=== PATIENT | female | born 1950 | race Two or more races ===

== ENCOUNTER 2023-08-02 18:02 | Inpatient (IN) | payer OTHER ==
[~2023-08-02] VITALS: Ht 152.4 cm; Wt 55.3 kg
[2023-08-02 18:40] LABS: Chloride 101 mmol/L (98-107); Sodium 135 mmol/L (136-145)
[2023-08-02 18:41] LABS: Anion Gap 6 (5-15); Carbon Dioxide 28 mmol/L (20-30)
[2023-08-02 18:42] LABS: Calcium 9.2 mg/dL (8.5-10.1)
[2023-08-02 18:44] LABS: Basophils # (auto) 0 10 ^3/uL (0-0.2); Basophils % (auto) 0.3 % (0.0-2.0); Eosinophils # (auto) 0.1 10 ^3/uL (0-0.8); Eosinophils % (auto) 0.9 % (0.0-7.0); Hematocrit 39.2 % (36.0-46.0); Hemoglobin 13.2 g/dL (12.2-16.2); Lymphocytes # (auto) 1.1 10 ^3/uL (0.4-5.4); Lymphocytes % (auto) 8.7 % (10.0-50.0); Mean Corpuscular Hemoglobin 30.8 pg (28.0-32.0); Mean Corpuscular Hgb Conc. 33.7 g/dL (32.0-36.0); Mean Corpuscular Volume 91.4 fL (80.0-100.0); Monocytes # (auto) 1.1 10 ^3/uL (0-1.3); Neutrophils # (auto) 10.3 10 ^3/uL (1.6-8.6); Neutrophils % (auto) 81.1 % (37.0-80.0); Red Blood Cells 4.29 10^6/uL (4.0-5.20); Red Cell Distribution Width 12.1 % (11.8-14.3); White Blood Cell 12.7 10^3/uL (4.4-10.8)
[2023-08-02 18:46] LABS: Blood Urea Nitrogen 20 mg/dL (9-23); Glucose 91 mg/dL (74-106)
[2023-08-02] MEDS ORDERED: KETOROLAC TROMETH 30 MG/ML 1ML VIAL IV ONE (19:30)
[2023-08-02] MEDS ORDERED: SODIUM CHLORIDE 0.9% 1,000 ML IVB ONE (19:30)
[2023-08-02] MEDS ORDERED: ONDANSETRON HCL 4 MG/2 ML VIAL IV ONE (19:30)
[2023-08-02] MEDS ORDERED: SODIUM CHLORIDE 0.9% 1,000 ML IV ONE (19:30)
[2023-08-02] MEDS ORDERED: PIPERACILLIN-TAZOB 3.375GM 100 ML IV ONE (19:45)
[2023-08-02 20:09] LABS: Urine Epithelial Cast None Seen /hpf (<5)
[2023-08-02 20:32] LABS: Urine Bacteria FEW /hpf (None Seen); Urine Blood 3+ /uL (Negative); Urine Clarity HAZY (Clear); Urine Color Yellow (Yellow); Urine Protein, UAD 1+ (Negative); Urine Specific Gravity 1.015 (1.001-1.035); Urine Urobilinogen Normal (Negative); Urine WBC 548 /hpf (0 - 5); Urine WBC Clumps PRESENT /hpf (None Seen)
[2023-08-02] MEDS ORDERED: ACETAMINOPHEN 325 MG TAB PO PRN (21:30)
[2023-08-02] MEDS ORDERED: DEXTROSE (50%) 50ML SYRG IV PRN (21:30)
[2023-08-02] MEDS ORDERED: ONDANSETRON HCL 4 MG/2 ML VIAL IV PRN (21:30)
[2023-08-02] MEDS: SODIUM CHLORIDE 0.9% 1,000 ML IV SCH (21:53)
[2023-08-02] MEDS: InsuLIN REG 1unit/0.01ml Soln (100units/ml) SC SCH (22:00)
[2023-08-02] MEDS: PIPERACILLIN-TAZOB 3.375GM 100 ML IV SCH (22:00)
[2023-08-02] MEDS ORDERED: NITROGLYCERIN 0.4 MG SL TAB SL PRN (22:15)
[2023-08-02] MEDS ORDERED: MORPHINE SULFATE INJ 2 MG/ml SYRG IV PRN (22:15)
[2023-08-02] MEDS: ACCU-CHEK COMFORT CURVE STRIP VI SCH (23:24)
[2023-08-03] MEDS: HYDROcodone-ACET 5/325MG TAB PO PRN ×2 (00:30→04:42)
[2023-08-03] MEDS: SODIUM CHLORIDE 0.9% 1,000 ML IV SCH ×3 (05:54→15:17)
[2023-08-03 06:34] LABS: Basophils # (auto) 0 10 ^3/uL (0-0.2); Basophils % (auto) 0.2 % (0.0-2.0); Eosinophils # (auto) 0.1 10 ^3/uL (0-0.8); Eosinophils % (auto) 0.9 % (0.0-7.0); Hematocrit 37.4 % (36.0-46.0); Hemoglobin 12.4 g/dL (12.2-16.2); Lymphocytes # (auto) 0.6 10 ^3/uL (0.4-5.4); Lymphocytes % (auto) 7.1 % (10.0-50.0); Mean Corpuscular Hemoglobin 30.8 pg (28.0-32.0); Mean Corpuscular Hgb Conc. 33.1 g/dL (32.0-36.0); Mean Corpuscular Volume 92.8 fL (80.0-100.0); Monocytes # (auto) 0.9 10 ^3/uL (0-1.3); Neutrophils # (auto) 7.5 10 ^3/uL (1.6-8.6); Neutrophils % (auto) 81.8 % (37.0-80.0); Red Blood Cells 4.03 10^6/uL (4.0-5.20); Red Cell Distribution Width 12.3 % (11.8-14.3); White Blood Cell 9.1 10^3/uL (4.4-10.8)
[2023-08-03] MEDS: PIPERACILLIN-TAZOB 3.375GM 100 ML IV SCH (06:54)
[2023-08-03 06:55] LABS: Alkaline Phosphatase 115 U/L (46-116); Anion Gap 9 (5-15); Aspartate Aminotransferase 9 U/L (13-40); BUN/Creatinine Ratio 22.7 (10.0-20.0); Blood Urea Nitrogen 15 mg/dL (9-23); Calcium 8.4 mg/dL (8.7-10.4); Carbon Dioxide 23 mmol/L (20-30); Chloride 105 mmol/L (98-107); Glucose 73 mg/dL (74-106); Potassium 3.7 mmol/L (3.5-5.1); Sodium 137 mmol/L (136-145)
[2023-08-03 06:56] LABS: Bilirubin, Total 0.4 mg/dL (0.2-1.0); Total Protein 7.1 g/dL (5.7-8.2)
[2023-08-03 06:58] LABS: Alanine Aminotransferase < 9 U/L (7-40)
[2023-08-03] MEDS: ACCU-CHEK COMFORT CURVE STRIP VI SCH ×4 (07:30→21:51)
[2023-08-03] MEDS: InsuLIN REG 1unit/0.01ml Soln (100units/ml) SC SCH ×4 (07:30→21:54)
[2023-08-03 10:12] VITALS: BP 137/69; PULSE 101; RESP 20; TEMP 98.1; O2SAT 94
[2023-08-03] MEDS ORDERED: cefTRIAXone 1GM/50ML D5W 50 ML IV ONE (10:15)
[2023-08-03 10:21] VITALS: BP 134/57; PULSE 69; RESP 20; TEMP 98.6; O2SAT 93
[2023-08-03] MEDS: MORPHINE SULFATE INJ 2 MG/ml SYRG IV PRN ×3 (11:11→21:55)
[2023-08-03] MEDS ORDERED: GLIP10TA9 PO (12:29)
[2023-08-03] MEDS ORDERED: ESCI10TA PO (12:45)
[2023-08-03] MEDS ORDERED: OMEG1400 PO (12:45)
[2023-08-03] MEDS ORDERED: MELO-335 PO (12:45)
[2023-08-03] MEDS ORDERED: METF-372 PO (12:45)
[2023-08-03] MEDS ORDERED: MAGN400T40 OR (12:45)
[2023-08-03] MEDS ORDERED: CYCL-837 PO (12:45)
[2023-08-03] MEDS ORDERED: SACC1CAP3 PO (12:45)
[2023-08-03] MEDS ORDERED: B-COCAP36 OR (12:45)
[2023-08-03 13:00] VITALS: BP 150/71; PULSE 99; RESP 20; TEMP 98; O2SAT 92
[2023-08-03 17:00] VITALS: BP 129/72; PULSE 96; RESP 18; TEMP 98.7; O2SAT 94
[2023-08-03 20:00] VITALS: PULSE 99; RESP 18; TEMP 37.1; O2SAT 95
[2023-08-03] MEDS: TAMSULOSIN HYDROCHLORIDE 0.4 MG CAP PO SCH (21:49)
[2023-08-03] MEDS: DOCUSATE SOD 100 MG CAP PO PRN (21:54)
[2023-08-03 22:00] VITALS: BP_SYST 109; BP_SYST 131; BP_DIAS 59; BP_DIAS 86; PULSE 107; PULSE 93; RESP 20; TEMP 98.1; TEMP 99.1; O2SAT 93; O2SAT 95
[2023-08-04] VITALS (8 sets, daily range): BP systolic 113–163; BP diastolic 54–87; PULSE 66–111; RESP 17–22; TEMP 37.1; O2SAT 0–95
[2023-08-04 06:43] LABS: Albumin 3.7 g/dL (3.2-4.8); Alkaline Phosphatase 109 U/L (46-116); Anion Gap 8 (5-15); Aspartate Aminotransferase 14 U/L (13-40); BUN/Creatinine Ratio 14.5 (10.0-20.0); Bilirubin, Total 0.3 mg/dL (0.2-1.0); Blood Urea Nitrogen 8 mg/dL (9-23); Calcium 8.5 mg/dL (8.5-10.1); Carbon Dioxide 22 mmol/L (20-30); Chloride 105 mmol/L (98-107); Glucose 133 mg/dL (74-106); Potassium 3.6 mmol/L (3.5-5.1); Sodium 135 mmol/L (136-145); Total Protein 6.4 g/dL (5.7-8.2)
[2023-08-04 06:44] LABS: Alanine Aminotransferase < 9 U/L (7-40)
[2023-08-04] MEDS: ACCU-CHEK COMFORT CURVE STRIP VI SCH ×4 (06:44→21:32)
[2023-08-04] MEDS: InsuLIN REG 1unit/0.01ml Soln (100units/ml) SC SCH ×4 (06:44→21:31)
[2023-08-04 06:48] LABS: Basophils # (auto) 0 10 ^3/uL (0-0.2); Basophils % (auto) 0.2 % (0.0-2.0); Eosinophils # (auto) 0.1 10 ^3/uL (0-0.8); Hematocrit 34.7 % (36.0-46.0); Hemoglobin 11.7 g/dL (12.2-16.2); Lymphocytes # (auto) 0.7 10 ^3/uL (0.4-5.4); Lymphocytes % (auto) 7.3 % (10.0-50.0); Mean Corpuscular Hemoglobin 31.2 pg (28.0-32.0); Mean Corpuscular Hgb Conc. 33.8 g/dL (32.0-36.0); Mean Corpuscular Volume 92.3 fL (80.0-100.0); Monocytes # (auto) 0.6 10 ^3/uL (0-1.3); Monocytes % (auto) 6.8 % (0.0-12.0); Neutrophils # (auto) 7.8 10 ^3/uL (1.6-8.6); Neutrophils % (auto) 84.7 % (37.0-80.0); Red Blood Cells 3.76 10^6/uL (4.0-5.20); Red Cell Distribution Width 12.3 % (11.8-14.3); White Blood Cell 9.3 10^3/uL (4.4-10.8)
[2023-08-04] MEDS: cefTRIAXone 1GM/50ML D5W 50 ML IV SCH (09:11)
[2023-08-04] MEDS: SODIUM CHLORIDE 0.9% 1,000 ML IV SCH ×2 (09:12→17:28)
[2023-08-04] MEDS: DOCUSATE SOD 100 MG CAP PO PRN (16:17)
[2023-08-04] MEDS: TAMSULOSIN HYDROCHLORIDE 0.4 MG CAP PO SCH (17:25)
[2023-08-04] MEDS: MORPHINE SULFATE INJ 2 MG/ml SYRG IV PRN ×2 (17:26→23:35)
[2023-08-04] MEDS ORDERED: LACTULOSE 20Gm/30ML SOLN PO ONE (19:00)
[2023-08-05] MEDS: HYDROcodone-ACET 5/325MG TAB PO PRN ×2 (01:53→06:34)
[2023-08-05] MEDS: MORPHINE SULFATE INJ 2 MG/ml SYRG IV PRN ×3 (04:11→21:26)
[2023-08-05 05:00] VITALS: BP 130/92; PULSE 93; RESP 18; TEMP 97.8; O2SAT 97
[2023-08-05] MEDS: InsuLIN REG 1unit/0.01ml Soln (100units/ml) SC SCH ×4 (06:28→21:13)
[2023-08-05] MEDS: ACCU-CHEK COMFORT CURVE STRIP VI SCH ×4 (06:49→22:00)
[2023-08-05] MEDS: cefTRIAXone 1GM/50ML D5W 50 ML IV SCH (08:16)
[2023-08-05 09:00] VITALS: BP 119/70; PULSE 71; RESP 18; TEMP 97.8; O2SAT 96
[2023-08-05] MEDS ORDERED: LACTULOSE 20Gm/30ML SOLN PO PRN (09:00)
[2023-08-05 09:34] VITALS: BP 153/68; PULSE 79; RESP 20; TEMP 97.7; O2SAT 93
[2023-08-05] MEDS ORDERED: KETOROLAC TROMETH 30 MG/ML 1ML VIAL IV ONE (12:45)
[2023-08-05 13:25] VITALS: BP 146/76; PULSE 78; RESP 20; TEMP 97.6; O2SAT 95
[2023-08-05 14:31] LABS: INR 1.04 (0.9-1.15); Partial Thromboplastin Time 30.2 SEC (24.5-34.5); Prothrombin Time 10.9 sec (9.3-11.8)
[2023-08-05] MEDS: SODIUM CHLORIDE 0.9% 1,000 ML IV SCH (15:55)
[2023-08-05 16:46] VITALS: BP 158/68; PULSE 78; RESP 20; TEMP 98; O2SAT 95
[2023-08-05] MEDS: TAMSULOSIN HYDROCHLORIDE 0.4 MG CAP PO SCH (17:50)
[2023-08-05 21:59] VITALS: BP 107/77; PULSE 96; RESP 20; TEMP 97.8; O2SAT 99
[2023-08-06] VITALS (8 sets, daily range): BP systolic 141–153; BP diastolic 61–95; PULSE 83–95; RESP 12–20; TEMP 97.5–98.2; O2SAT 92–100
[2023-08-06] MEDS: MORPHINE SULFATE INJ 2 MG/ml SYRG IV PRN ×3 (01:37→21:01)
[2023-08-06] MEDS: SODIUM CHLORIDE 0.9% 1,000 ML IV SCH ×2 (05:15→18:35)
[2023-08-06] MEDS: InsuLIN REG 1unit/0.01ml Soln (100units/ml) SC SCH ×4 (06:06→22:00)
[2023-08-06] MEDS: ACCU-CHEK COMFORT CURVE STRIP VI SCH ×4 (06:34→22:00)
[2023-08-06] MEDS: cefTRIAXone 1GM/50ML D5W 50 ML IV SCH (08:30)
[2023-08-06] MEDS: IBUPROFEN 600 MG TAB PO SCH ×4 (08:30→22:00)
[2023-08-06] MEDS: HYDROcodone-ACET 5/325MG TAB PO PRN ×2 (17:10→23:23)
[2023-08-06] MEDS ORDERED: MIDAZOLAM HCL 2MG/2ML 2ml VIAL (1mg/ml) ONE (17:18)
[2023-08-06] MEDS ORDERED: fentaNYL CITRATE 100 MCG/2 ML VL ONE (17:18)
[2023-08-06] MEDS ORDERED: IODIXANOL 320MG/ML 100ML BTL IV ONE (17:31)
[2023-08-06] MEDS ORDERED: LIDOCAINE 2%HCL (LOCAL ANESTH.) INJ 20ML MDV ONE (17:31)
[2023-08-06] MEDS: TAMSULOSIN HYDROCHLORIDE 0.4 MG CAP PO SCH (18:00)
[2023-08-07] MEDS: MORPHINE SULFATE INJ 2 MG/ml SYRG IV PRN ×3 (01:39→23:46)
[2023-08-07 05:00] VITALS: BP 163/83; PULSE 100; RESP 18; TEMP 98.6; O2SAT 100
[2023-08-07] MEDS: IBUPROFEN 600 MG TAB PO SCH ×3 (06:00→22:03)
[2023-08-07] MEDS: InsuLIN REG 1unit/0.01ml Soln (100units/ml) SC SCH ×4 (06:34→23:34)
[2023-08-07] MEDS: ACCU-CHEK COMFORT CURVE STRIP VI SCH ×4 (06:53→23:34)
[2023-08-07 07:30] VITALS: PULSE 90; RESP 18; O2SAT 95
[2023-08-07] MEDS: SODIUM CHLORIDE 0.9% 1,000 ML IV SCH ×2 (07:55→21:15)
[2023-08-07 08:00] VITALS: BP 128/74; PULSE 90; RESP 18; TEMP 98.3; O2SAT 95
[2023-08-07] MEDS: HYDROcodone-ACET 5/325MG TAB PO PRN (09:32)
[2023-08-07] MEDS: cefTRIAXone 1GM/50ML D5W 50 ML IV SCH (09:32)
[2023-08-07] MEDS ORDERED: SUCCINYLCHOLINE CHLORIDE 20 MG/ML 10ML VIAL IV ONE (14:06)
[2023-08-07] MEDS ORDERED: CIPROFLOXACIN 400MG/200ML 200 ML IV ONE (14:13)
[2023-08-07] MEDS ORDERED: fentaNYL CITRATE 100 MCG/2 ML VL ONE ×2 (14:13→14:45)
[2023-08-07] MEDS ORDERED: ONDANSETRON HCL 4 MG/2 ML VIAL IV PRN ×2 (14:15→16:15)
[2023-08-07] MEDS ORDERED: HYDROmorphone HCL 2 MG/ML VL/or syr IV PRN ×2 (14:15→16:15)
[2023-08-07] MEDS ORDERED: ePHEDrine SULFATE 50 MG/ML AMP ONE (14:35)
[2023-08-07] MEDS ORDERED: IOHEXOL 300 MG/ML 100ML BOTTLE IJ ONE (14:54)
[2023-08-07] MEDS ORDERED: LIDOCAINE W/ EPINEPHRINE 1% 20ML VIAL ONE (14:54)
[2023-08-07] MEDS ORDERED: MEPERIDINE HCL (25 MG/ML) 1ML VIAL ONE (15:09)
[2023-08-07 16:05] VITALS: O2SAT 100
[2023-08-07] MEDS ORDERED: ACCU-CHEK COMFORT CURVE STRIP VI ONE (16:15)
[2023-08-07] MEDS ORDERED: hydrALAZINE HCL 20 MG/ML VL IV PRN (16:15)
[2023-08-07] MEDS ORDERED: LABETALOL HCL 5 MG/ML 4ML SYRINGE IV PRN (16:15)
[2023-08-07] MEDS ORDERED: MORPHINE SULFATE 4 MG/ML SYR/VIAL IV PRN (16:15)
[2023-08-07] MEDS ORDERED: ePHEDrine SULFATE 50 MG/ML AMP IV PRN (16:15)
[2023-08-07] MEDS ORDERED: MIDAZOLAM HCL 2MG/2ML 2ml VIAL (1mg/ml) IV PRN (16:15)
[2023-08-07] MEDS: TAMSULOSIN HYDROCHLORIDE 0.4 MG CAP PO SCH (18:36)
[2023-08-07 21:54] VITALS: BP 134/80; PULSE 112; RESP 18; TEMP 98.2; O2SAT 98
[2023-08-08 05:00] VITALS: BP 131/58; PULSE 104; RESP 20; TEMP 98.3; O2SAT 95
[2023-08-08] MEDS: IBUPROFEN 600 MG TAB PO SCH ×3 (06:57→22:58)
[2023-08-08] MEDS: ACCU-CHEK COMFORT CURVE STRIP VI SCH ×4 (07:10→22:58)
[2023-08-08] MEDS: InsuLIN REG 1unit/0.01ml Soln (100units/ml) SC SCH ×4 (07:11→23:59)
[2023-08-08 07:30] VITALS: PULSE 98; RESP 18; O2SAT 96
[2023-08-08 07:34] LABS: Anion Gap 9 (5-15); Carbon Dioxide 23 mmol/L (20-30); Chloride 102 mmol/L (98-107); Potassium 3.6 mmol/L (3.5-5.1); Sodium 134 mmol/L (136-145)
[2023-08-08 07:35] LABS: Basophils # (auto) 0 10 ^3/uL (0-0.2); Basophils % (auto) 0.3 % (0.0-2.0); Calcium 8.6 mg/dL (8.5-10.1); Eosinophils # (auto) 0 10 ^3/uL (0-0.8); Eosinophils % (auto) 0.1 % (0.0-7.0); Hemoglobin 11.6 g/dL (12.2-16.2); Lymphocytes # (auto) 0.7 10 ^3/uL (0.4-5.4); Lymphocytes % (auto) 6.1 % (10.0-50.0); Mean Corpuscular Hemoglobin 31.4 pg (28.0-32.0); Mean Corpuscular Volume 92.3 fL (80.0-100.0); Monocytes # (auto) 0.7 10 ^3/uL (0-1.3); Monocytes % (auto) 6.6 % (0.0-12.0); Neutrophils # (auto) 9.5 10 ^3/uL (1.6-8.6); Neutrophils % (auto) 86.9 % (37.0-80.0); Red Blood Cells 3.68 10^6/uL (4.0-5.20); Red Cell Distribution Width 12.6 % (11.8-14.3); White Blood Cell 10.9 10^3/uL (4.4-10.8)
[2023-08-08 07:40] LABS: BUN/Creatinine Ratio 10.3 (10.0-20.0); Blood Urea Nitrogen 8 mg/dL (9-23); Glucose 172 mg/dL (74-106)
[2023-08-08 09:00] VITALS: BP 152/62; PULSE 108; RESP 18; TEMP 98.3; O2SAT 96
[2023-08-08] MEDS: cefTRIAXone 1GM/50ML D5W 50 ML IV SCH (09:00)
[2023-08-08] MEDS: SODIUM CHLORIDE 0.9% 1,000 ML IV SCH (10:35)
[2023-08-08 13:00] VITALS: BP 131/64; PULSE 107; RESP 16; TEMP 97.8; O2SAT 99
[2023-08-08] MEDS: ALPRAZolam 0.25 MG TAB PO PRN (15:59)
[2023-08-08 16:22] VITALS: BP 131/55; PULSE 104; RESP 18; TEMP 98; O2SAT 100
[2023-08-08] MEDS: MORPHINE SULFATE INJ 2 MG/ml SYRG IV PRN (17:53)
[2023-08-08] MEDS: TAMSULOSIN HYDROCHLORIDE 0.4 MG CAP PO SCH (18:00)
[2023-08-08 22:00] VITALS: BP 132/65; PULSE 108; RESP 16; TEMP 98.1; O2SAT 96
[2023-08-09] VITALS (7 sets, daily range): BP systolic 101–119; BP diastolic 41–75; PULSE 90–110; RESP 17–20; TEMP 97.5–98; O2SAT 95–100
[2023-08-09] MEDS: MORPHINE SULFATE INJ 2 MG/ml SYRG IV PRN (00:56)
[2023-08-09] MEDS: SODIUM CHLORIDE 0.9% 1,000 ML IV SCH ×2 (01:18→12:13)
[2023-08-09 05:54] LABS: Basophils # (auto) 0 10 ^3/uL (0-0.2); Basophils % (auto) 0.1 % (0.0-2.0); Eosinophils # (auto) 0.1 10 ^3/uL (0-0.8); Eosinophils % (auto) 0.4 % (0.0-7.0); Hematocrit 29.9 % (36.0-46.0); Hemoglobin 10.2 g/dL (12.2-16.2); Lymphocytes % (auto) 6.4 % (10.0-50.0); Mean Corpuscular Hemoglobin 31.7 pg (28.0-32.0); Mean Corpuscular Hgb Conc. 34.2 g/dL (32.0-36.0); Mean Corpuscular Volume 92.7 fL (80.0-100.0); Monocytes # (auto) 0.7 10 ^3/uL (0-1.3); Monocytes % (auto) 4.9 % (0.0-12.0); Neutrophils # (auto) 13.3 10 ^3/uL (1.6-8.6); Neutrophils % (auto) 88.2 % (37.0-80.0); Red Blood Cells 3.23 10^6/uL (4.0-5.20); Red Cell Distribution Width 12.2 % (11.8-14.3)
[2023-08-09 05:59] LABS: Calcium 7.9 mg/dL (8.7-10.4); Chloride 108 mmol/L (98-107); Potassium 3.5 mmol/L (3.5-5.1); Sodium 138 mmol/L (136-145)
[2023-08-09 06:00] LABS: Anion Gap 5 (5-15); Carbon Dioxide 25 mmol/L (20-30)
[2023-08-09 06:05] LABS: BUN/Creatinine Ratio 16.7 (10.0-20.0); Blood Urea Nitrogen 12 mg/dL (9-23); Glucose 181 mg/dL (74-106)
[2023-08-09 06:06] LABS: Magnesium 1.8 mg/dL (1.6-2.6)
[2023-08-09] MEDS: IBUPROFEN 600 MG TAB PO SCH ×3 (06:26→21:21)
[2023-08-09] MEDS: ACCU-CHEK COMFORT CURVE STRIP VI SCH ×4 (06:27→21:29)
[2023-08-09] MEDS: InsuLIN REG 1unit/0.01ml Soln (100units/ml) SC SCH ×4 (07:03→22:54)
[2023-08-09] MEDS: cefTRIAXone 1GM/50ML D5W 50 ML IV SCH (08:38)
[2023-08-09] MEDS: HYDROcodone-ACET 5/325MG TAB PO PRN ×2 (12:08→20:11)
[2023-08-09] MEDS: TAMSULOSIN HYDROCHLORIDE 0.4 MG CAP PO SCH (17:38)
[2023-08-10] VITALS (7 sets, daily range): BP systolic 128–162; BP diastolic 59–74; PULSE 89–113; RESP 18–20; TEMP 97.5–98.4; O2SAT 94–100
[2023-08-10] MEDS: HYDROcodone-ACET 5/325MG TAB PO PRN ×2 (03:08→07:29)
[2023-08-10] MEDS: SODIUM CHLORIDE 0.9% 1,000 ML IV SCH ×2 (03:12→15:55)
[2023-08-10] MEDS: IBUPROFEN 600 MG TAB PO SCH ×3 (05:54→22:29)
[2023-08-10] MEDS: InsuLIN REG 1unit/0.01ml Soln (100units/ml) SC SCH ×4 (06:50→22:37)
[2023-08-10] MEDS: ACCU-CHEK COMFORT CURVE STRIP VI SCH ×4 (06:50→22:30)
[2023-08-10] MEDS: cefTRIAXone 1GM/50ML D5W 50 ML IV SCH (08:44)
[2023-08-10] MEDS: TAMSULOSIN HYDROCHLORIDE 0.4 MG CAP PO SCH (18:08)
[2023-08-11] MEDS: MORPHINE SULFATE INJ 2 MG/ml SYRG IV PRN (02:18)
[2023-08-11 05:00] VITALS: BP 150/69; PULSE 95; RESP 19; TEMP 98; O2SAT 95
[2023-08-11] MEDS: SODIUM CHLORIDE 0.9% 1,000 ML IV SCH ×2 (05:52→19:08)
[2023-08-11] MEDS: IBUPROFEN 600 MG TAB PO SCH ×3 (06:06→22:07)
[2023-08-11] MEDS: ACCU-CHEK COMFORT CURVE STRIP VI SCH ×4 (06:07→22:03)
[2023-08-11] MEDS: InsuLIN REG 1unit/0.01ml Soln (100units/ml) SC SCH ×4 (06:20→22:05)
[2023-08-11 08:47] VITALS: BP 148/63; PULSE 90; RESP 16; TEMP 98; O2SAT 98
[2023-08-11] MEDS: DOCUSATE SOD 100 MG CAP PO SCH ×2 (09:47→22:07)
[2023-08-11] MEDS: cefTRIAXone 1GM/50ML D5W 50 ML IV SCH (09:47)
[2023-08-11 12:37] VITALS: BP 140/64; PULSE 85; RESP 20; TEMP 97.8; O2SAT 97
[2023-08-11 17:00] VITALS: BP 158/80; PULSE 95; RESP 20; TEMP 98.3; O2SAT 100
[2023-08-11] MEDS: TAMSULOSIN HYDROCHLORIDE 0.4 MG CAP PO SCH (19:04)
[2023-08-11 20:00] VITALS: PULSE 101; RESP 17; O2SAT 99
[2023-08-11 22:00] VITALS: BP 133/69; PULSE 101; RESP 17; TEMP 97.9; O2SAT 99
[2023-08-11] MEDS: ALPRAZolam 0.25 MG TAB PO PRN (22:07)
[2023-08-12] MEDS: MORPHINE SULFATE INJ 2 MG/ml SYRG IV PRN (00:34)
[2023-08-12 05:00] VITALS: BP 137/75; PULSE 88; RESP 18; TEMP 98.4; O2SAT 97
[2023-08-12] MEDS: SODIUM CHLORIDE 0.9% 1,000 ML IV SCH (05:04)
[2023-08-12] MEDS: IBUPROFEN 600 MG TAB PO SCH ×3 (06:29→22:39)
[2023-08-12] MEDS: ACCU-CHEK COMFORT CURVE STRIP VI SCH ×4 (06:31→22:35)
[2023-08-12] MEDS: InsuLIN REG 1unit/0.01ml Soln (100units/ml) SC SCH ×4 (06:32→22:38)
[2023-08-12 07:00] LABS: Chloride 105 mmol/L (98-107); Potassium 3.7 mmol/L (3.5-5.1); Sodium 140 mmol/L (136-145)
[2023-08-12 07:01] LABS: Anion Gap 5 (5-15); Calcium 9.4 mg/dL (8.5-10.1); Carbon Dioxide 30 mmol/L (20-30)
[2023-08-12 07:06] LABS: BUN/Creatinine Ratio 18.3 (10.0-20.0); Blood Urea Nitrogen 11 mg/dL (9-23); Glucose 143 mg/dL (74-106)
[2023-08-12 07:13] LABS: Basophils # (auto) 0 10 ^3/uL (0-0.2); Basophils % (auto) 0.8 % (0.0-2.0); Eosinophils # (auto) 0.2 10 ^3/uL (0-0.8); Hematocrit 32.3 % (36.0-46.0); Hemoglobin 10.8 g/dL (12.2-16.2); Lymphocytes # (auto) 1.1 10 ^3/uL (0.4-5.4); Lymphocytes % (auto) 21.9 % (10.0-50.0); Mean Corpuscular Hgb Conc. 33.5 g/dL (32.0-36.0); Mean Corpuscular Volume 92.4 fL (80.0-100.0); Monocytes # (auto) 0.4 10 ^3/uL (0-1.3); Neutrophils # (auto) 3.3 10 ^3/uL (1.6-8.6); Neutrophils % (auto) 65.3 % (37.0-80.0); Red Blood Cells 3.49 10^6/uL (4.0-5.20); Red Cell Distribution Width 12.5 % (11.8-14.3); White Blood Cell 5.1 10^3/uL (4.4-10.8)
[2023-08-12 08:00] VITALS: PULSE 93; RESP 20
[2023-08-12] MEDS: cefTRIAXone 1GM/50ML D5W 50 ML IV SCH (09:01)
[2023-08-12] MEDS: ALPRAZolam 0.25 MG TAB PO PRN ×2 (09:02→22:40)
[2023-08-12] MEDS: DOCUSATE SOD 100 MG CAP PO SCH ×2 (09:02→22:40)
[2023-08-12 09:18] VITALS: BP 148/81; PULSE 93; RESP 20; TEMP 97.9; O2SAT 95
[2023-08-12 17:00] VITALS: BP 139/81; PULSE 96; RESP 20; TEMP 98; O2SAT 99
[2023-08-12] MEDS: TAMSULOSIN HYDROCHLORIDE 0.4 MG CAP PO SCH (17:06)
[2023-08-12 20:00] VITALS: PULSE 105; RESP 16; O2SAT 95
[2023-08-12 22:00] VITALS: BP 148/64; PULSE 104; RESP 16; TEMP 97.8; O2SAT 95
[2023-08-13 05:00] VITALS: BP 145/65; PULSE 99; RESP 20; TEMP 97.2; O2SAT 95
[2023-08-13] MEDS: ACCU-CHEK COMFORT CURVE STRIP VI SCH ×4 (06:31→22:00)
[2023-08-13] MEDS: InsuLIN REG 1unit/0.01ml Soln (100units/ml) SC SCH ×4 (06:34→21:46)
[2023-08-13] MEDS: SODIUM CHLORIDE 0.9% 1,000 ML IV SCH ×3 (06:35→23:55)
[2023-08-13] MEDS: IBUPROFEN 600 MG TAB PO SCH ×3 (06:35→21:50)
[2023-08-13 09:00] VITALS: BP 150/74; PULSE 94; RESP 18; TEMP 97.6; O2SAT 98
[2023-08-13] MEDS: DOCUSATE SOD 100 MG CAP PO SCH ×2 (09:13→21:50)
[2023-08-13] MEDS: cefTRIAXone 1GM/50ML D5W 50 ML IV SCH (09:13)
[2023-08-13] MEDS: ALPRAZolam 0.25 MG TAB PO PRN ×2 (09:13→18:28)
[2023-08-13 12:43] VITALS: BP 152/71; PULSE 100; RESP 20; TEMP 97.8; O2SAT 97
[2023-08-13 17:52] VITALS: BP 144/67; PULSE 100; RESP 18; TEMP 98.4; O2SAT 97
[2023-08-13] MEDS: TAMSULOSIN HYDROCHLORIDE 0.4 MG CAP PO SCH (18:29)
[2023-08-13] MEDS: HYDROcodone-ACET 5/325MG TAB PO PRN (18:30)
[2023-08-13 22:00] VITALS: BP 124/65; PULSE 91; RESP 16; TEMP 97.5; O2SAT 100
[2023-08-13] MEDS: MORPHINE SULFATE INJ 2 MG/ml SYRG IV PRN (22:15)
[2023-08-14] MEDS: MORPHINE SULFATE INJ 2 MG/ml SYRG IV PRN ×3 (04:03→18:12)
[2023-08-14 05:00] VITALS: BP 131/70; PULSE 76; RESP 16; TEMP 99.1; O2SAT 95
[2023-08-14] MEDS: IBUPROFEN 600 MG TAB PO SCH ×3 (06:00→22:00)
[2023-08-14] MEDS: InsuLIN REG 1unit/0.01ml Soln (100units/ml) SC SCH ×4 (06:05→23:30)
[2023-08-14] MEDS: ACCU-CHEK COMFORT CURVE STRIP VI SCH ×4 (06:54→22:00)
[2023-08-14 08:00] VITALS: BP 134/70; PULSE 100; RESP 20; RESP 22; TEMP 98.1; O2SAT 95
[2023-08-14 09:00] VITALS: BP 134/70; PULSE 100; RESP 22; TEMP 98.1; O2SAT 95
[2023-08-14] MEDS: DOCUSATE SOD 100 MG CAP PO SCH (09:07)
[2023-08-14] MEDS: cefTRIAXone 1GM/50ML D5W 50 ML IV SCH (09:07)
[2023-08-14] MEDS ORDERED: INSULIN LANTUS (GLARGINE) 1 /0.01ml (100units/ml) SC ONE (10:15)
[2023-08-14 13:00] VITALS: BP 135/99; PULSE 102; RESP 20; TEMP 97.5; O2SAT 94
[2023-08-14] MEDS: SODIUM CHLORIDE 0.9% 1,000 ML IV SCH (13:15)
[2023-08-14] MEDS: ALPRAZolam 0.25 MG TAB PO PRN (13:36)
[2023-08-14 17:00] VITALS: BP 113/78; PULSE 89; RESP 20; TEMP 98; O2SAT 99
[2023-08-14] MEDS: TAMSULOSIN HYDROCHLORIDE 0.4 MG CAP PO SCH (18:11)
[2023-08-14] MEDS: metFORMIN HYDROCHLORIDE 500 MG TAB PO SCH (18:11)
[2023-08-14 22:00] VITALS: BP 125/64; PULSE 110; RESP 21; TEMP 98.1; O2SAT 95
[2023-08-14] MEDS ORDERED: INSULIN LANTUS (GLARGINE) 1 /0.01ml (100units/ml) SC SCH (22:00)
[2023-08-14] MEDS: INSULIN LANTUS (GLARGINE) 1 /0.01ml (100units/ml) SC SCH (23:30)
[2023-08-15] MEDS: DOCUSATE SOD 100 MG CAP PO SCH ×3 (00:17→22:31)
[2023-08-15] MEDS: ALPRAZolam 0.25 MG TAB PO PRN ×3 (00:20→22:31)
[2023-08-15 05:00] VITALS: BP 126/75; PULSE 94; RESP 17; TEMP 98.2; O2SAT 95
[2023-08-15 06:14] LABS: Basophils # (auto) 0 10 ^3/uL (0-0.2); Basophils % (auto) 0.7 % (0.0-2.0); Eosinophils # (auto) 0.2 10 ^3/uL (0-0.8); Eosinophils % (auto) 3.9 % (0.0-7.0); Hematocrit 33.4 % (36.0-46.0); Hemoglobin 11.1 g/dL (12.2-16.2); Lymphocytes # (auto) 1.4 10 ^3/uL (0.4-5.4); Mean Corpuscular Hemoglobin 30.7 pg (28.0-32.0); Mean Corpuscular Hgb Conc. 33.2 g/dL (32.0-36.0); Mean Corpuscular Volume 92.2 fL (80.0-100.0); Monocytes # (auto) 0.5 10 ^3/uL (0-1.3); Monocytes % (auto) 7.7 % (0.0-12.0); Neutrophils % (auto) 64.7 % (37.0-80.0); Red Blood Cells 3.62 10^6/uL (4.0-5.20); Red Cell Distribution Width 12.4 % (11.8-14.3); White Blood Cell 6.2 10^3/uL (4.4-10.8)
[2023-08-15 06:25] LABS: Anion Gap 6 (5-15); Carbon Dioxide 28 mmol/L (20-30); Chloride 104 mmol/L (98-107); Potassium 3.9 mmol/L (3.5-5.1); Sodium 138 mmol/L (136-145)
[2023-08-15 06:27] LABS: Calcium 9.2 mg/dL (8.7-10.4)
[2023-08-15 06:31] LABS: Glucose 104 mg/dL (74-106)
[2023-08-15 06:32] LABS: BUN/Creatinine Ratio 20.6 (10.0-20.0); Blood Urea Nitrogen 14 mg/dL (9-23)
[2023-08-15] MEDS: ACCU-CHEK COMFORT CURVE STRIP VI SCH ×4 (06:32→21:54)
[2023-08-15] MEDS: InsuLIN REG 1unit/0.01ml Soln (100units/ml) SC SCH ×4 (06:33→21:55)
[2023-08-15] MEDS: IBUPROFEN 600 MG TAB PO SCH ×3 (06:34→22:31)
[2023-08-15 08:00] VITALS: BP 139/51; PULSE 121; RESP 20; RESP 21; TEMP 97.9; O2SAT 97
[2023-08-15] MEDS: metFORMIN HYDROCHLORIDE 500 MG TAB PO SCH ×2 (08:24→18:27)
[2023-08-15 09:00] VITALS: BP 139/51; PULSE 121; RESP 21; TEMP 97.9; O2SAT 97
[2023-08-15] MEDS: INSULIN LANTUS (GLARGINE) 1 /0.01ml (100units/ml) SC SCH ×2 (11:30→22:31)
[2023-08-15] MEDS: MORPHINE SULFATE INJ 2 MG/ml SYRG IV PRN (11:33)
[2023-08-15] MEDS ORDERED: FLUCONAZOLE 100 MG TAB PO ONE (12:15)
[2023-08-15 13:00] VITALS: BP 130/76; PULSE 103; RESP 21; TEMP 97.7; O2SAT 91
[2023-08-15] MEDS: TAMSULOSIN HYDROCHLORIDE 0.4 MG CAP PO SCH (18:28)
[2023-08-15 20:00] VITALS: RESP 20
[2023-08-15 22:00] VITALS: BP 127/76; PULSE 120; RESP 16; TEMP 97.7; O2SAT 96
[2023-08-16] MEDS: HYDROcodone-ACET 5/325MG TAB PO PRN ×3 (01:18→11:36)
[2023-08-16 05:00] VITALS: BP 131/67; PULSE 98; RESP 18; TEMP 98.1; O2SAT 97
[2023-08-16] MEDS: IBUPROFEN 600 MG TAB PO SCH ×2 (07:17→13:59)
[2023-08-16] MEDS: ACCU-CHEK COMFORT CURVE STRIP VI SCH ×2 (07:17→11:32)
[2023-08-16] MEDS: InsuLIN REG 1unit/0.01ml Soln (100units/ml) SC SCH ×2 (07:19→11:40)
[2023-08-16] MEDS: metFORMIN HYDROCHLORIDE 500 MG TAB PO SCH (08:45)
[2023-08-16 09:00] VITALS: BP 123/66; PULSE 105; RESP 18; TEMP 98.4; O2SAT 94
[2023-08-16] MEDS ORDERED: BACDST PO (10:28)
[2023-08-16 11:18] VITALS: BP 123/66; PULSE 105; RESP 18; TEMP 88.4; O2SAT 94
[2023-08-16] MEDS: ALPRAZolam 0.25 MG TAB PO PRN (11:29)
[2023-08-16] MEDS: DOCUSATE SOD 100 MG CAP PO SCH (11:29)
[2023-08-16] MEDS: INSULIN LANTUS (GLARGINE) 1 /0.01ml (100units/ml) SC SCH (11:41)
[2023-08-16] MEDS ORDERED: ALPR0.25 PO (12:57)
[2023-08-16 13:00] VITALS: BP 120/61; PULSE 107; RESP 18; TEMP 97.8; O2SAT 96
== END 2023-08-16 15:20 | disposition home health service (06) | DRG 660 ==
LOC: ER 18:02 → OVERFLOW 22:11 → WEST WING 08-03 10:11
PROVIDERS: ADMIT Nurse Practitioner Family; ATTEND Internal Medicine Geriatric Medicine
PROC: 0T9030Z Drainage of Right Kidney with Drainage Device, Percutaneous Approach (ICD-10-PCS; 2023-08-07)
PROC: 0TC03ZZ Extirpation of Matter from Right Kidney, Percutaneous Approach (ICD-10-PCS; 2023-08-07)
PROC: 0TC08ZZ Extirpation of Matter from Right Kidney, Via Natural or Artificial Opening Endoscopic (ICD-10-PCS; principal; 2023-08-07 14:16)
DX: N20.0 Calculus of kidney (principal); M48.56XA Collapsed vertebra, not elsewhere classified, lumbar region, initial encounter for fracture; N39.0 Urinary tract infection, site not specified; E11.9 Type 2 diabetes mellitus without complications; I10 Essential (primary) hypertension; D72.829 Elevated white blood cell count, unspecified; F41.9 Anxiety disorder, unspecified; Z90.710 Acquired absence of both cervix and uterus; Z87.442 Personal history of urinary calculi; Z79.4 Long term (current) use of insulin
CPT/HCPCS: 36415; 50432; 74018; 74176; 76000; 76775; 76942; 80048; 80053; 81001; 82360; 82962; 83735; 85025; 85610; 85730; 87086; 96365; 96366; 96375; 99152; G0378; J0330; J1815; J1885; J2250; J2405; J2543; Q9967